=== PATIENT | female | born 1945 | race Caucasian/White ===

== ENCOUNTER → 2016-02-15 | Outpatient (CLI) | payer OTHER, MEDICARE ==
[~2016-02-15] MED LIST: ALLEGRA60 MG PO; ASPIRIN EC81 M1 PO; CITRUCEL CAPLET1 TAB PO; PROBIOTIC FORM1 EACH PO; PROBIOTIC1 EACH PO; VITAMIN D3400 UNI2 PO; ZOCOR 20 MG TAB20 M1 PO; ZYRTEC10 M2 PO
== END ==
LOC: NUC 09:00
DX: R10.10 Upper abdominal pain, unspecified (principal)